=== PATIENT | female | born 1990 | race Caucasian/White ===

== ENCOUNTER 2016-06-16 01:50 | Emergency (ER) | payer OTHER ==
[~2016-06-16] VITALS: Ht 162.6 cm; Wt 63.6 kg
[~2016-06-16 01:50] MED LIST: AMOX TR-K CLV1 EAC3 PO; ANAPROX DS550 M1 PO; ATARAX,VISTARIL25 MG PO; ATARAX,VISTARIL50 MG PO; ATIVAN0.5 MG PO; ATIVAN1 M1 PO; ATIVAN1 MG PO; BACTRIM,SEPT1 TABLET PO; BENZONATATE200 MG PO; BIRTH CONTROL PILL; BRINTELLIX5 MG PO; BUSPAR10 MG PO; BUSPAR5 MG PO; CATAPRES0.1 MG PO; CLONAZEPAM0.5 MG PO; CLONAZEPAM1 MG PO; CLONIDINE HCL0.1 MG PO; EFFEXOR XR150 MG PO; EFFEXOR XR37.5 MG PO; EFFEXOR37.5 MG PO; EFFEXOR75 MG PO; GABAPENTIN300 MG PO; HYDROXYZINE HCL25 MG PO; K-DUR20 MEQ PO; KLONOPIN1 MG; KLONOPIN1 MG PO; LODINE500 MG PO; LORAZEPAM1 MG PO; MACROBID100 MG PO; METHADONE; METOCLOPRAMIDE10 MG PO; MOTRIN800 MG PO; NICOTINE PATCH1 EAC2 TD; NORCO 5/3251 TABLET PO; ONDANSETRON ODT4 MG SL; OXYCODONE5 MG PO; OXYCONTIN10 MG PO; PAXIL20 MG PO; PHENADOZ12.5 MG PR; PHENERGAN25 MG PR; PROAIR HFA8.5 GM IH; PROMETHAZINE HC25 M1 PO; REGLAN10 MG PO; REGLAN5 MG PO; SEROQUEL XR300 MG PO; SUCRALFATE1 GM PO; VENLAFAXINE H37.5 M3 PO; VENLAFAXINE HC150 M1 PO; VITAMIN B-1100 MG PO; VITAMIN B-650 MG PO; XANAX; XANAX1 MG PO; XANAX2 MG PO; ZOFRAN ODT4 MG PO; ZOFRAN4 MG PO; ZOLOFT100 MG PO; ZOLOFT50 MG PO
[2016-06-16 01:59] VITALS: BP 140/95
[2016-06-16 03:42] LABS: INTERNAL CONTROL VALID? YES
[2016-06-16 03:43] LABS: BILIRUBIN NEGATIVE; BLOOD NEGATIVE; COLOR YELLOW ((YELLOW)); GLUCOSE (STRIP) 50; KETONES 5; LEUKOCYTES NEGATIVE; NITRITE NEGATIVE; PROTEIN (STRIP) 30; SPECIFIC GRAVITY 1.023 (1.000-1.030); UROBILINOGEN 0.2 MG/DL (0.2-1.0)
[2016-06-16 03:53] LABS: ADD MIUA? NO; UCUL ADDED? NO
[2016-06-16 04:38] LABS: EOSINOPHIL (%) 0 % (0-5); HEMATOCRIT 37.4 % (36.0-46.0); IMMATURE GRANULOCYTE (%) 0.8 % (0.0-0.7); IMMATURE GRANULOCYTE COUNT 0.2 K/uL; INSTRUMENT ABS NEUTROPHIL CT 23.7 K/uL; LYMPHOCYTE COUNT 1.1 K/uL (1.0-2.8); MCH 29.8 PG (29.0-34.0); MCHC 33.7 G/DL (30.0-36.0); MCV 88.4 FL (83-99); MEAN PLAT.VOLUME 10.4 uM^3 (9.5-12.4); MONOCYTE COUNT 1.6 K/uL (0-0.8); NEUTROPHIL (%) 88.8 % (45-76); NEUTROPHIL COUNT 23.7 K/uL (1.8-6.4); PLATELET COUNT 210 K/uL (156-360); RBC DIS.WIDTH-CV 14.3 % (11.8-14.6); RBC DIS.WIDTH-SD 45.8 % (39-53); RED BLOOD COUNT 4.23 M/uL (3.80-5.20); WHITE BLOOD COUNT 26.7 K/uL (4.1-10.2)
[2016-06-16 04:49] LABS: CHLORIDE 106 mEq/L (99-109); POTASSIUM 3.8 mEq/L (3.7-5.4); SODIUM 139 mEq/L (136-147)
[2016-06-16 04:51] LABS: GLUCOSE 124 mg/dL (70-99)
[2016-06-16 04:52] LABS: ANION GAP 11 MEQ/L (2-14)
[2016-06-16 04:53] LABS: TOTAL BILIRUBIN 0.3 mg/dL (0.0-1.0)
[2016-06-16 04:54] LABS: SERUM ETHYL ALCOHOL < 10 mg/dL
[2016-06-16 04:55] LABS: ALKALINE PHOSPHATASE 79 IU/L (3-129); GFR ESTIMATE (CALCULATED) > 59 mL/min/
[2016-06-16 04:57] LABS: UREA NITROGEN (BUN) 14 mg/dL (9-23)
[2016-06-16 04:58] LABS: SALICYLATE < 5.0 MG/DL (15-30)
[2016-06-16 05:21] LABS: COCAINE NEGATIVE (150 ng/mL); METHAMPHETAMINE NEGATIVE (500 ng/mL); OPIATES (MORPHINE) NEGATIVE (100 ng/mL); PHENCYCLIDINE NEGATIVE (25 ng/mL); THC CANNABINOIDS PRESUMPTIVE POSITIVE (50 ng/mL)
[2016-06-16 05:22] LABS: ADD MEDTOX COMMENT Y; AMPHETAMINE NEGATIVE (500 ng/mL); BARBITURATES NEGATIVE (200 ng/mL); BENZODIAZEPINES NEGATIVE (150 ng/mL); INTERNAL CONTROLS VALID? YES; METHADONE NEGATIVE (200 ng/mL); OXYCODONE NEGATIVE (100 ng/mL); PROPOXYPHENE NEGATIVE (300 ng/mL); TRICYCLIC ANTIDEPRESSANTS NEGATIVE (300 ng/mL)
[2016-06-16 07:59] LABS: MEAN PLAT.VOLUME 10.9 uM^3 (9.5-12.4); PLATELET COUNT 258 K/uL (156-360)
[2016-06-16 08:30] LABS: HEMATOCRIT 39.4 % (36.0-46.0); MCH 29.8 PG (29.0-34.0); MCHC 33.8 G/DL (30.0-36.0); MCV 88.1 FL (83-99); RBC DIS.WIDTH-CV 14.3 % (11.8-14.6); RBC DIS.WIDTH-SD 46.2 % (39-53); RED BLOOD COUNT 4.47 M/uL (3.80-5.20)
[2016-06-16 08:32] LABS: WHITE BLOOD COUNT 31.6 K/uL (4.1-10.2)
[2016-06-16] MEDS ORDERED: FLAGYL500 MG PO (08:59)
== END 2016-06-16 09:00 | disposition left against medical advice (07) ==
LOC: EME 01:50
PROVIDERS: Emergency Medicine
DX: F41.0 Panic disorder [episodic paroxysmal anxiety] (principal); F41.1 Generalized anxiety disorder; R11.2 Nausea with vomiting, unspecified; R19.7 Diarrhea, unspecified; D72.829 Elevated white blood cell count, unspecified; R10.9 Unspecified abdominal pain; F32.9 Major depressive disorder, single episode, unspecified
CPT/HCPCS: 71010; 74177; 80053; 81003; 84703; 84999; 85025; 85027; 87493; 90839; 99281; 99285; G0480; J1630; J2060; J2405; J7030

== ENCOUNTER 2016-07-15 05:50 | Emergency (ER) | payer OTHER ==
[~2016-07-15] VITALS: Ht 162.6 cm; Wt 62.0 kg
[~2016-07-15 05:50] MED LIST changes: +FLAGYL500 MG PO
[2016-07-15 06:57] LABS: EOSINOPHIL (%) 0.1 % (0-5); HEMATOCRIT 42.3 % (36.0-46.0); IMMATURE GRANULOCYTE (%) 0.5 % (0.0-0.7); IMMATURE GRANULOCYTE COUNT 0.1 K/uL; INSTRUMENT ABS NEUTROPHIL CT 15.6 K/uL; LYMPHOCYTE COUNT 1.9 K/uL (1.0-2.8); MCH 29.8 PG (29.0-34.0); MCV 87.4 FL (83-99); MEAN PLAT.VOLUME 10.6 uM^3 (9.5-12.4); MONOCYTE (%) 4.3 % (3-12); MONOCYTE COUNT 0.8 K/uL (0-0.8); NEUTROPHIL (%) 84.6 % (45-76); NEUTROPHIL COUNT 15.6 K/uL (1.8-6.4); PLATELET COUNT 296 K/uL (156-360); RBC DIS.WIDTH-CV 14.3 % (11.8-14.6); RBC DIS.WIDTH-SD 45.9 % (39-53); RED BLOOD COUNT 4.84 M/uL (3.80-5.20)
[2016-07-15 06:59] LABS: WHITE BLOOD COUNT 18.4 K/uL (4.1-10.2)
[2016-07-15 07:17] LABS: CHLORIDE 105 mEq/L (99-109); POTASSIUM 3.5 mEq/L (3.7-5.4); SODIUM 142 mEq/L (136-147)
[2016-07-15 07:19] LABS: GLUCOSE 139 mg/dL (70-99)
[2016-07-15 07:20] LABS: ANION GAP 16 MEQ/L (2-14)
[2016-07-15 07:21] LABS: TOTAL BILIRUBIN 0.6 mg/dL (0.0-1.0)
[2016-07-15 07:22] LABS: ALKALINE PHOSPHATASE 80 IU/L (3-129)
[2016-07-15 07:23] LABS: GFR ESTIMATE (CALCULATED) > 59 mL/min/
[2016-07-15 07:24] LABS: UREA NITROGEN (BUN) 12 mg/dL (9-23)
[2016-07-15 07:26] LABS: LIPASE 26 U/L (1.0-51.0)
[2016-07-15 07:58] VITALS: BP 143/79
== END 2016-07-15 08:00 | disposition left against medical advice (07) ==
LOC: EME 05:50
PROVIDERS: Emergency Medicine
DX: R10.9 Unspecified abdominal pain (principal); R61 Generalized hyperhidrosis; F17.200 Nicotine dependence, unspecified, uncomplicated
CPT/HCPCS: 80053; 81003; 83690; 84703; 85025; 99281; 99285; J2060; J2405; J2765; J7030

== ENCOUNTER 2016-07-17 04:31 | Emergency (ER) | payer OTHER ==
[~2016-07-17] VITALS: Ht 162.6 cm; Wt 63.5 kg
[2016-07-17 07:42] LABS: EOSINOPHIL (%) 0 % (0-5); HEMATOCRIT 35.8 % (36.0-46.0); IMMATURE GRANULOCYTE (%) 0.4 % (0.0-0.7); IMMATURE GRANULOCYTE COUNT 0.1 K/uL; INSTRUMENT ABS NEUTROPHIL CT 13.2 K/uL; LYMPHOCYTE COUNT 1.1 K/uL (1.0-2.8); MCH 29.9 PG (29.0-34.0); MCHC 34.4 G/DL (30.0-36.0); MCV 87.1 FL (83-99); MEAN PLAT.VOLUME 10.2 uM^3 (9.5-12.4); MONOCYTE (%) 4.5 % (3-12); MONOCYTE COUNT 0.7 K/uL (0-0.8); NEUTROPHIL (%) 87.7 % (45-76); NEUTROPHIL COUNT 13.2 K/uL (1.8-6.4); PLATELET COUNT 234 K/uL (156-360); RBC DIS.WIDTH-CV 13.9 % (11.8-14.6); RBC DIS.WIDTH-SD 44.3 % (39-53); RED BLOOD COUNT 4.11 M/uL (3.80-5.20)
[2016-07-17 08:04] LABS: QUANTITATIVE HCG < 4.0 MIU/ML
[2016-07-17 08:22] LABS: ALKALINE PHOSPHATASE 57 IU/L (3-129); ANION GAP 13 MEQ/L (2-14); CHLORIDE 105 MEQ/L (99-109); GFR ESTIMATE (CALCULATED) > 59 mL/min/; GLUCOSE 110 mg/dL (70-99); POTASSIUM 2.9 MEQ/L (3.7-5.4); SAMPLE HEMOLYSIS CHECK 0; SAMPLE ICTERIC CHECK 0; SAMPLE LIPEMIA CHECK 0; SODIUM 141 MEQ/L (136-147); TOTAL BILIRUBIN 0.7 MG/DL (0.0-1.0); UREA NITROGEN (BUN) 14 mg/dL (9-23)
[2016-07-17 08:41] LABS: LIPASE 18 U/L (1.0-51.0)
[2016-07-17] MEDS ORDERED: K-DUR20 MEQ PO (10:28)
[2016-07-17 11:33] VITALS: BP 141/103
== END 2016-07-17 11:34 | disposition home or self-care (01) ==
LOC: EXP 04:31 → EME 04:31 → EXP 11:34
PROVIDERS: Emergency Medicine
DX: R10.84 Generalized abdominal pain (principal); D72.829 Elevated white blood cell count, unspecified; F41.0 Panic disorder [episodic paroxysmal anxiety]; F31.9 Bipolar disorder, unspecified; R11.2 Nausea with vomiting, unspecified; F17.200 Nicotine dependence, unspecified, uncomplicated
CPT/HCPCS: 80053; 81003; 83690; 84702; 85025; 90839; 99281; 99285; J1885; J2060; J2405; J7030

== ENCOUNTER 2016-07-17 12:11 | Emergency (ER) | payer OTHER | END 2016-07-17 12:24 | disposition left against medical advice (07) | LOC: EME 12:11 | DX: Z53.21 Procedure and treatment not carried out due to patient leaving prior to being seen by health care provider (principal) ==

== ENCOUNTER 2016-07-19 08:26 | Emergency (ER) | payer OTHER ==
[~2016-07-19] VITALS: Ht 162.6 cm; Wt 63.7 kg
[2016-07-19] MEDS ORDERED: SEROQUEL100 MG PO (08:33)
[2016-07-19 09:22] LABS: CHLORIDE 106 mEq/L (99-109); POTASSIUM 2.8 mEq/L (3.7-5.4); SODIUM 143 mEq/L (136-147)
[2016-07-19 09:24] LABS: GLUCOSE 101 mg/dL (70-99)
[2016-07-19 09:25] LABS: ANION GAP 12 MEQ/L (2-14)
[2016-07-19 09:26] LABS: TOTAL BILIRUBIN 0.5 mg/dL (0.0-1.0)
[2016-07-19 09:28] LABS: ALKALINE PHOSPHATASE 61 IU/L (3-129); GFR ESTIMATE (CALCULATED) > 59 mL/min/
[2016-07-19 09:29] LABS: UREA NITROGEN (BUN) 9 mg/dL (9-23)
[2016-07-19 09:31] LABS: HEMATOCRIT 36.5 % (36.0-46.0); MCH 30.3 PG (29.0-34.0); MCHC 34.2 G/DL (30.0-36.0); MCV 88.6 FL (83-99); MEAN PLAT.VOLUME 10.2 uM^3 (9.5-12.4); PLATELET COUNT 243 K/uL (156-360); RBC DIS.WIDTH-CV 13.7 % (11.8-14.6); RBC DIS.WIDTH-SD 44.5 % (39-53); RED BLOOD COUNT 4.12 M/uL (3.80-5.20)
[2016-07-19 09:37] LABS: QUANTITATIVE HCG < 4.0 MIU/ML
[2016-07-19 11:52] VITALS: BP 123/74
[2016-07-20] MEDS ORDERED: ZOLOFT100 MG PO (00:52)
[2016-07-20] MEDS ORDERED: SEROQUEL100 MG PO ×2 (00:53→00:58)
== END 2016-07-19 11:54 | disposition home or self-care (01) ==
LOC: EME 08:26
PROVIDERS: Nurse Practitioner Family
DX: F41.0 Panic disorder [episodic paroxysmal anxiety] (principal); F43.9 Reaction to severe stress, unspecified; F41.9 Anxiety disorder, unspecified; E87.6 Hypokalemia; F32.9 Major depressive disorder, single episode, unspecified; F11.10 Opioid abuse, uncomplicated; F43.10 Post-traumatic stress disorder, unspecified; Z88.8 Allergy status to other drugs, medicaments and biological substances; F17.200 Nicotine dependence, unspecified, uncomplicated; F12.10 Cannabis abuse, uncomplicated
CPT/HCPCS: 80053; 81003; 84702; 85027; 90839; 99281; 99284; Q0177

== ENCOUNTER 2016-07-19 23:37 | Emergency (ER) | payer OTHER ==
[~2016-07-19] VITALS: Ht 162.6 cm; Wt 63.7 kg
[~2016-07-19 23:37] MED LIST changes: +SEROQUEL100 MG PO
[2016-07-20] MEDS ORDERED: ZOLOFT100 MG PO (00:52)
[2016-07-20] MEDS ORDERED: SEROQUEL100 MG PO ×2 (00:53→00:58)
[2016-07-20 01:05] VITALS: BP 144/103
== END 2016-07-20 01:31 | disposition home or self-care (01) ==
LOC: EME 23:37
DX: F41.1 Generalized anxiety disorder (principal); F17.200 Nicotine dependence, unspecified, uncomplicated
CPT/HCPCS: 99281; 99284

== ENCOUNTER 2016-10-18 05:10 | Emergency (ER) | payer OTHER ==
[~2016-10-18] VITALS: Ht 162.6 cm; Wt 62.9 kg
[2016-10-18 05:42] LABS: HEMATOCRIT 42.4 % (36.0-46.0); MCH 29.9 PG (29.0-34.0); MCV 88.1 FL (83-99); RBC DIS.WIDTH-CV 14.2 % (11.8-14.6); RBC DIS.WIDTH-SD 45.6 % (39-53); RED BLOOD COUNT 4.81 M/uL (3.80-5.20)
[2016-10-18 05:46] LABS: CHLORIDE 107 mEq/L (99-109); SODIUM 143 mEq/L (136-147)
[2016-10-18 05:47] LABS: GLUCOSE 117 mg/dL (70-99)
[2016-10-18 05:49] LABS: ANION GAP 16 MEQ/L (2-14)
[2016-10-18 05:51] LABS: GFR ESTIMATE (CALCULATED) > 59 mL/min/; SERUM ETHYL ALCOHOL < 10 mg/dL
[2016-10-18 05:52] LABS: UREA NITROGEN (BUN) 10 mg/dL (9-23)
[2016-10-18 05:59] LABS: QUANTITATIVE HCG < 4.0 MIU/ML
[2016-10-18 07:02] VITALS: BP 108/85
[2016-10-18 07:16] LABS: MEAN PLAT.VOLUME 10.9 uM^3 (9.5-12.4); PLAT.SUFFICIENCY ADEQUATE; PLATELET COUNT 314 K/uL (156-360)
[2016-10-19] MEDS ORDERED: MOTRIN800 MG PO (06:19)
[2016-10-19] MEDS ORDERED: ZOLOFT100 MG PO (07:30)
[2016-10-19] MEDS ORDERED: SEROQUEL100 MG PO (07:30)
== END 2016-10-18 06:48 | disposition home or self-care (01) ==
LOC: EME 05:10
PROVIDERS: Emergency Medicine
DX: F41.9 Anxiety disorder, unspecified (principal); F17.200 Nicotine dependence, unspecified, uncomplicated
CPT/HCPCS: 80048; 84702; 85027; 99281; 99284; G0480; J1630; J2060

== ENCOUNTER 2016-10-19 05:34 | Emergency (ER) | payer OTHER ==
[~2016-10-19] VITALS: Ht 167.6 cm; Wt 81.8 kg
[2016-10-19] MEDS ORDERED: MOTRIN800 MG PO (06:19)
[2016-10-19] MEDS ORDERED: ZOLOFT100 MG PO (07:30)
[2016-10-19] MEDS ORDERED: SEROQUEL100 MG PO (07:30)
[2016-10-19 07:56] VITALS: BP 119/76
== END 2016-10-19 07:57 | disposition home or self-care (01) ==
LOC: EME → EDBD 05:34 → EME 07:57
DX: F41.9 Anxiety disorder, unspecified (principal); F32.9 Major depressive disorder, single episode, unspecified; F17.200 Nicotine dependence, unspecified, uncomplicated; F12.10 Cannabis abuse, uncomplicated
CPT/HCPCS: 80048; 81003; 84702; 85025; 90839; 99281; 99284; G0480

== ENCOUNTER 2016-10-20 04:54 | Emergency (ER) | payer OTHER ==
[~2016-10-20] VITALS: Ht 162.6 cm; Wt 61.7 kg
[2016-10-20 06:18] LABS: HEMATOCRIT 39.6 % (36.0-46.0); MCH 30.1 PG (29.0-34.0); MCHC 34.3 G/DL (30.0-36.0); MCV 87.6 FL (83-99); MEAN PLAT.VOLUME 10.4 uM^3 (9.5-12.4); PLATELET COUNT 245 K/uL (156-360); RBC DIS.WIDTH-CV 14.2 % (11.8-14.6); RBC DIS.WIDTH-SD 45.8 % (39-53); RED BLOOD COUNT 4.52 M/uL (3.80-5.20); WHITE BLOOD COUNT 15.9 K/uL (4.1-10.2)
[2016-10-20 06:29] LABS: CHLORIDE 105 mEq/L (99-109); SODIUM 140 mEq/L (136-147)
[2016-10-20 06:31] LABS: GLUCOSE 126 mg/dL (70-99)
[2016-10-20 06:33] LABS: ANION GAP 11 MEQ/L (2-14); POTASSIUM 3.1 mEq/L (3.7-5.4)
[2016-10-20 06:34] LABS: SERUM ETHYL ALCOHOL < 10 mg/dL
[2016-10-20 06:35] LABS: GFR ESTIMATE (CALCULATED) > 59 mL/min/
[2016-10-20 06:36] LABS: UREA NITROGEN (BUN) 10 mg/dL (9-23)
[2016-10-20 06:44] LABS: QUANTITATIVE HCG < 4.0 MIU/ML
[2016-10-20 07:20] LABS: ADD MIUA? YES; BILIRUBIN SMALL; BLOOD NEGATIVE; COLOR AMBER ((YELLOW)); GLUCOSE (STRIP) NEGATIVE; KETONES 5; LEUKOCYTES NEGATIVE; NITRITE NEGATIVE; PROTEIN (STRIP) 100; SPECIFIC GRAVITY 1.035 (1.000-1.030)
[2016-10-20 07:24] LABS: AMPHETAMINE NEGATIVE (500 ng/mL); BARBITURATES NEGATIVE (200 ng/mL); BENZODIAZEPINES PRESUMPTIVE POSITIVE (150 ng/mL); COCAINE NEGATIVE (150 ng/mL); INTERNAL CONTROLS VALID? YES; METHADONE NEGATIVE (200 ng/mL); METHAMPHETAMINE NEGATIVE (500 ng/mL); OPIATES (MORPHINE) NEGATIVE (100 ng/mL); OXYCODONE NEGATIVE (100 ng/mL); PHENCYCLIDINE NEGATIVE (25 ng/mL); PROPOXYPHENE NEGATIVE (300 ng/mL); THC CANNABINOIDS PRESUMPTIVE POSITIVE (50 ng/mL); TRICYCLIC ANTIDEPRESSANTS PRESUMPTIVE POSITIVE (300 ng/mL)
[2016-10-20 07:25] LABS: ADD MEDTOX COMMENT Y
[2016-10-20 07:41] LABS: BACTERIA RARE /HPF; EPITHELIAL CELLS RARE /HPF; MUCUS 4+ /LPF; RED BLOOD CELLS 0-5 /HPF (0-5); UCUL ADDED? NO; WHITE BLOOD CELLS 0-5 /HPF (0-5)
[2016-10-20 08:14] LABS: BENZODIAZEPINES, URINE SCREEN POSITIVE (200 ng/mL)
[2016-10-20 13:57] VITALS: BP 126/92
== END 2016-10-20 14:00 ==
LOC: EME → EDBD 04:54 → EME 04:54
PROVIDERS: Emergency Medicine
DX: F41.9 Anxiety disorder, unspecified (principal); F32.9 Major depressive disorder, single episode, unspecified; Z87.19 Personal history of other diseases of the digestive system
CPT/HCPCS: 80048; 81003; 84702; 84999; 85027; 90837; 99281; 99285; G0480; J1630; J2060

== ENCOUNTER 2017-05-13 14:29 | Emergency (ER) | payer OTHER ==
[~2017-05-13] VITALS: Ht 165.1 cm; Wt 56.7 kg
[2017-05-13 14:32] VITALS: BP 88/78
== END 2017-05-13 18:30 | disposition left against medical advice (07) ==
LOC: EME 14:29
DX: H10.9 Unspecified conjunctivitis (principal); F41.9 Anxiety disorder, unspecified; F17.200 Nicotine dependence, unspecified, uncomplicated; Z88.8 Allergy status to other drugs, medicaments and biological substances